=== PATIENT | female | born 1970 | race Caucasian/White ===

== ENCOUNTER 2019-01-20 11:10 | Emergency (ER) | payer BC ==
--- NOTE | 2019-01-20 12:35 | ER Document Report ---
ED Medical Screen (RME) - General Chief Complaint: Back Pain Stated Complaint: BACK PAIN Time Seen by Provider: 01/20/19 12:30 Mode of Arrival: Ambulatory Information source: Patient Notes: 48-year-old female presented to ED for complaint of pain in the center of her back that started Monday she states the pain got much worse this morning. She said this is not her normal back pain. She states when she first got up she could not get out of the bed or go to the bathroom her brought her to the emergency room and she was able to walk back to the room. Patient is alert and oriented respirations regular and unlabored speaking in full sentences. Pain is paraspinal lumbar area. I have greeted and performed a rapid initial assessment of this patient. A comprehensive ED assessment and evaluation of the patient, analysis of test results and completion of medical decision making process will be conducted by an additional ED providers. TRAVEL OUTSIDE OF THE [place] IN LAST 30 DAYS: No - Related Data Allergies/Adverse Reactions: Anesthetics - Jerica Type- Parabens Allergy (Verified 01/20/19 11:12) codeine Allergy (Verified 01/20/19 11:12) latex Allergy (Verified 01/20/19 11:12) morphine Allergy (Verified 01/20/19 11:12) Sulfa (Sulfonamide Antibiotics) Allergy (Verified 01/20/19 11:12) Past Medical History - Social History Chew tobacco use (# tins/day): No Frequency of alcohol use: None Drug Abuse: None Renal/ Medical History: Denies: Hx Peritoneal Dialysis Musculoskeltal Medical History: Reports Hx Arthritis, Reports Hx Musculoskeletal Deformity Past Surgical History: Reports: Hx Cholecystectomy, Hx Hysterectomy, Hx Tubal Ligation Physical Exam - Vital signs Vitals: Temp Pulse Resp BP Pulse Ox 97.6 F 75 18 131/58 H 95 01/20/19 11:16 01/20/19 11:16 01/20/19 11:16 01/20/19 11:16 01/20/19 11:16 Course - Vital Signs Vital signs: Temp Pulse Resp BP Pulse Ox 97.6 F 75 18 131/58 H 95 01/20/19 11:16 01/20/19 11:16 01/20/19 11:16 01/20/19 11:16 01/20/19 11:16
[2019-01-20] MEDS ORDERED: KETOROLAC TROMETHAMINE 60 MG/2 ML SDV IM ONE (12:36)
[2019-01-20] MEDS ORDERED: DEXAMETHASONE SOD PHOS INJ 10 MG/1 ML VIAL IM ONE (12:36)
--- NOTE | 2019-01-20 13:49 | ER Document Report ---
HPI - HPI Patient complains to provider of: low back pain Time Seen by Provider: 01/20/19 12:30 Pain Level: 4 Context: 48-year-old female presented to ED for complaint of pain in the center of her back that started Monday. Patient states that there was no inciting incident although her states that she was carrying a large heavy load of laundry 2 to 3 days prior. Patient denies any saddle anesthesia, acute extremity weakness, urinary retention, fevers. Patient states that the pain does not radiate is located on the left paraspinal muscle at the level of approximately L4. No other complaints. - REPRODUCTIVE Reproductive: DENIES: : Past Medical History - General Information source: Patient - Social History Smoking Status: Current Every Day Smoker Chew tobacco use (# tins/day): No Frequency of alcohol use: None Drug Abuse: None Family History: None Patient has suicidal ideation: No Patient has homicidal ideation: No Renal/ Medical History: Denies: Hx Peritoneal Dialysis Musculoskeletal Medical History: Reports Hx Arthritis, Reports Hx Musculoskeletal Deformity Past Surgical History: Reports: Hx Cholecystectomy, Hx Hysterectomy, Hx Tubal Ligation Vertical Provider Document - CONSTITUTIONAL Notes: PHYSICAL EXAMINATION: Reviewed vital signs and charting by RN GENERAL: Alert, interacts well. No acute distress. HEAD: Normocephalic, atraumatic. EYES: Pupils equal and round. Extraocular movements intact. ENT: Oral mucosa moist, tongue midline. NECK: Full range of motion. Trachea midline. LUNGS: Clear to auscultation bilaterally, no wheezes, rales, or rhonchi. No r espiratory distress. HEART: Regular rate and rhythm. No murmur ABDOMEN: soft, non-tender. No distention. Bowel sounds present EXTREMITIES: Moves all 4 extremities spontaneously. No edema, No cyanosis. NEURO: 5 out of 5 strength both distally and proximally bilateral lower extremities. 2+ patellar reflexes bilaterally. No clonus. Sensation grossly intact in the bilateral lower extremities. Patient is able to ambulate with very mild difficulty. PSYCH: Normal affect, normal mood. SKIN: Warm, dry, normal turgor. No rashes or lesions noted. - INFECTION CONTROL TRAVEL OUTSIDE OF THE [place] IN LAST 30 DAYS: No Course - Re-evaluation Re-evalutation: 01/20/19 13:49 Presentation of a well appearing patient complaining of acute on chronic back pain. No rapid progression of symptoms, systemic symptoms including fevers, chills, weight loss, history of recent bacterial infection, bilateral symptoms, numbness, weakness, difficulty walking, urinary retention or bowel incontinence, personal history of cancer, immunosuppression, diabetes, known AAA, or history of IV drug use. Exam is without point tenderness over vertebral bodies, pulsatile abdominal mass, and patient has symmetric and intact lower extremity strength, sensation, and reflexes without clonus. 2+ symmetric medial malleolar and dorsalis pedis pulses Based on history and physical, I have a very low suspicion of a concerning etiology of pain including epidural compression syndrome, spinal infection, transverse myelitis, malignancy, abdominal aortic aneurysm, renal colic, acute lower extremity claudication, neurogenic claudication, ankylosing spondylitis, or other intra-abdominal process. Due to absence of concerning risk factors in history and physical as well as absence of rapidly progressive, severe, or bilateral symptoms, will defer imaging at this point. - Vital Signs Vital signs: Temp Pulse Resp BP Pulse Ox 97.6 F 75 18 131/58 H 95 01/20/19 11:16 01/20/19 11:16 01/20/19 11:16 01/20/19 11:16 01/20/19 11:16 Discharge - Discharge Clinical Impression: Low back pain Qualifiers: Chronicity: acute Back pain laterality: left Sciatica presence: without sciatica Qualified Code(s): M54.5 - Low back pain Condition: Good Disposition: HOME, SELF-CARE Additional Instructions: You have been seen in the Emergency Department (ED) today for back pain. Your workup and exam have not shown any acute abnormalities and you are likely suffering from muscle strain or possible problems with your discs, but there is no treatment that will fix your symptoms at this time. Please take Motrin 600 mg every 6 hours and/or Tylenol every 6 hours for pain/inflammation. You should also purchase a local lidocaine cream such as "aspercreme with lidocaine" and use per bottle instructions to the affected area. Apply heat to the area as often as you are able. Continue to keep active and avoid prolonged periods of bed rest. Please follow up with your doctor as soon as possible regarding today's ED visit and your back pain. Return to the ED for worsening back pain, fever, weakness or numbness of either leg, or if you develop either (1) an inability to urinate or have bowel movements, or (2) loss of your ability to control your bathroom functions (if you start having "accidents"), or if you develop other new symptoms that concern you.concern you.
[2019-01-20 14:22] VITALS: BP 131/50
== END 2019-01-20 14:22 | disposition home or self-care (01) ==
LOC: ER 11:10
DX: M54.5 Low back pain (principal); X50.0XXA Overexertion from strenuous movement or load, initial encounter; F17.200 Nicotine dependence, unspecified, uncomplicated
CPT/HCPCS: 99283; 96374; 96375; J1885; J1100